=== PATIENT | female | born 1935 | race Caucasian/White ===

== ENCOUNTER 2016-06-29 22:18 | Inpatient (IN) | payer OTHER ==
--- NOTE | ~2016-06-29 | DS ---
Unit #: [id number] #: [id number] Patient: TERESA WATT [id number] [address] [address] [id number] I MR#: [id number] NAME: TERESA WATT. ROOM: [facility] Age: 81 Sex: F Admission Date: 06/30/2016 : 1935 Discharge Date: 07/09/2016 Attending Physician: Ankita Alberts M.D. Primary Care Physician: Rush Squires M.D. DISCHARGE SUMMARY SUMMARY DATE OF 07/09/2016 TIME OF 05:27 FINAL DIAGNOSES 1. Sepsis. 2. Bacteremia. 3. Hypotension. 4. Paroxysmal atrial fibrillation. 5. Nonsustained ventricular tachycardia. 6. Acute left lower extremity deep venous thrombosis. 7. Acute systolic congestive heart failure. 8. Acute on chronic diastolic congestive heart failure. 9. Ejection fraction of 40% to 45%. 10. Acute on chronic kidney disease. 11. Liver mass, status post biopsy this admission. 12. History of pancreatic cancer, status post Whipple procedure. 13. Hypothyroidism. 14. Sarcoidosis. 15. Nonsmoker. HISTORY 81-year-old female who was admitted to the hospital on 06/30/2016 with shortness of breath, worsening, and was diagnosed with acute on chronic systolic and diastolic congestive heart failure. Patient had bilateral lower extremity edema, diagnosed with DVT. Patient had a history of pancreatic cancer and had Whipple procedure done some time ago. Liver biopsy was done during hospitalization for the liver mass. The patient, after the liver biopsy, she went into hypertension and sepsis. The patient's family decided for DNR status and hospice care. Hospice was consulted but patient on 07/09/2016 at [facility]. The patient's family was aware of patient's poor prognosis and I discussed with them multiple times during hospitalization. Dictated by... Ankita Alberts M.D. Unit #: [id number] #: [id number] Patient: TERESA WATT ECTOR/jasmine TD: 07/17/2016 09:42 JOB #: [id number] DISCHARGE SUMMARY Page 1 of 1 X Ankita Alberts MD SUMMARY
--- NOTE | ~2016-06-29 | NM69 ---
[facility] A Service of [facility] RADIOLOGY TEXT RESULTS PATIENT: TERESA WATT LOCATION: [facility] [address]-84 : 36 UNIT #: [id number] AGE: [address]: Ankita Alberts MD SEX: F ORDER DR: [id number] [facility] [address] [facility] [address] [facility] [place], [place] [address] [id number] MR#: [id number] Acc #: [id number] NAME: TERESA WATT. : 1935 SEX: F STUDY DATE/TIME: 06/30/2016 1:45 UNIT: [facility]OGER ROOM: STUDY DESCRIPTION: NM Pulm Vent and Perf Attending Physician: Foreign Luna M.D. Ordering Physician: Vikas Garcia M.D. Primary Care Physician: Rush Squires M.D. MEDICAL IMAGING REPORT This report is preliminary unless electronic signature is present EXAM Radionuclide ventilation-perfusion lung scan 06/30/2016 HISTORY 81-year-old female in the ED complaining of 2-day history of shortness of air. She has a history of chronic lung disease (sarcoidosis). DOSE 33.8 mCi Technetium labeled DTPA inhaled in aerosol. 6 mCi Technetium labeled MAA administered intravenously. FINDINGS CHEST X-RAY FINDINGS: Chest x-ray 06/29/2016 shows diffusely increased interstitial markings with bulky thoracic calcified lymph nodes compatible with the patient's known history of pulmonary sarcoidosis. There is also significant central pulmonary artery enlargement compatible with pulmonary artery hypertension. A vascular filter is visible in the IVC. LUNG SCAN FINDINGS: Extensive, severe matched multifocal perfusion and ventilation defects are seen throughout both lungs. The pattern suggests this is likely secondary to the patient's diffuse chronic lung disease. No unmatched perfusion defect is identified to convincingly suggest acute pulmonary embolism. However, given the extent and severity of matched multifocal abnormality, pulmonary embolism would be very difficult to exclude with high confidence on this examination. The exam should be considered indeterminate for the exclusion of pulmonary embolism. IMPRESSION 1 Indeterminate examination for the exclusion of pulmonary embolism. 2. No unmatched perfusion defect is identified. 3. Evidence of severe diffuse chronic lung disease as noted above. 4. Chest x-ray shows a vascular filter in the IVC. [facility] A Service of [facility] RADIOLOGY TEXT RESULTS PATIENT: TERESA WATT LOCATION: [facility] [address]-18 : 36 UNIT #: [id number] AGE: [address]: Ankita Alberts MD SEX: F ORDER DR: STAT * RESULT Dictated by... Jerry Nielson M.D. THIS IS AN ELECTRONICALLY VERIFIED REPORT Jerry Nielson M.D. at 06/30/2016 5:29 AM KENDAL/isabella TD: 06/30/2016 02:40 JOB #: [id number] MEDICAL IMAGING REPORT COPY
--- NOTE | ~2016-06-29 | HP ---
Unit #: [id number] #: [id number] Patient: TERESA WATT [id number] [address] [place], [place] [address] [id number] I MR#: [id number] NAME: TERESA WATT. ROOM: 334 Age: 81 Sex: F Admission Date: 06/30/2016 : 1935 Attending Physician: Ankita Alberts M.D. Primary Care Physician: Rush Squires M.D. HISTORY AND PHYSICAL HISTORY OF PRESENT ILLNESS This is an 81-year-old white female with history of pulmonary embolism, status post IVC filter; coronary artery disease; hypertension; adenocarcinoma of the pancreas, status post Whipple; pulmonary sarcoid; COPD; recent-onset increased lower extremity edema about with increased shortness of air, no help with increasing dose of Lasix from 20 to 40 mg daily. Arrived in the emergency room where she was afebrile; paO2 was 75, pCO2 was 28; white count was slightly elevated; cardiac enzymes were normal; BNP was slightly elevated; VQ scan was indeterminate; coags were normal. EKG showed a sinus rhythm with first-degree AV block but was otherwise normal and the patient is admitted for further evaluation. Note, her liver functions were fairly high on admission. Do not have any old records of this except for when she was diagnosed with the adenocarcinoma some 5 years ago. Currently, she is awake, alert, oriented times 3 in no acute distress. She became somewhat hypotensive after getting IV Lasix. PAST MEDICAL HISTORY 1. Coronary artery disease. 2. Pulmonary embolism. 3. Sarcoid. 4. COPD. 5. Hypertension. 6. Hypothyroidism. 7. Adenocarcinoma of the pancreas, apparently the ampulla of Vater. 8. Suspect atrial fibrillation because of her amiodarone and Cardizem but patient unsure of that diagnosis and we have no records of it here. PAST SURGICAL HISTORY 1. Right hand repair. 2. Left hip. 3. Whipple procedure. HOME MEDICATIONS 1. Phenergan 25 mg p.o. p.r.n. 2. Spiriva one puff daily. 3. K-Dur 20 mEq daily. 4. Calcium 500 mg daily. 5. Multivitamins one daily. 6. Stool softener one daily. 7. Hydrocodone/APAP 5/325 one p.r.n. 8. Lasix 20 mg daily. Unit #: [id number] #: [id number] Patient: TERESA WATT 9. Cordarone 200 mg b.i.d. 10. Diltiazem 60 mg t.i.d. 11. Levothyroxine 75 mcg daily. ALLERGIES No known drug allergies. SOCIAL HISTORY She lives alone. Nonsmoker, nondrinker. No street drug use. She has a walker at home. PHYSICAL EXAMINATION VITAL SIGNS: Afebrile, pulse 65, respirations 18, blood pressure 85/52, room air O2 saturation in the ER was 97%. GENERAL: She is awake, alert, oriented x3. HEENT: Unremarkable except for nasal cannula in place and aging changes. NECK: Supple without JVD, bruits, adenopathy, or thyromegaly. LUNGS: Diffusely decreased breath sounds but clear to auscultation. HEART: Regular rate and rhythm without murmurs, rubs, or gallops. ABDOMEN: Soft, nondistended, nontender with positive bowel sounds and no hepatosplenomegaly. EXTREMITIES: No clubbing or cyanosis. She has 2+ pitting edema of the bilateral lower extremities which is fairly symmetrical. GENITOURINARY: Deferred. RECTAL: Deferred. NEUROLOGIC: Grossly intact. DIAGNOSTIC STUDIES LABORATORY: Room air ABGs pH 7.473, pCO2 28, paO2 75. CBC normal except for a white count of 12.4 with a left shift. Cardiac enzymes normal times 2 sets. CMP normal except for a sodium of 134. Creatinine 1.5. GFR of 35. AST 110, ALT 97, alkaline phosphatase 535. PT and PTT are within normal limits. BNP was 288. IMAGING: VQ scan indeterminate probability for pulmonary embolism. Severe chronic lung disease. IVC filter noted. Chest x-ray reportedly shows small bilateral pleural effusions but I am unable to pull it up in the computer. CARDIOVASCULAR: EKG shows a sinus rhythm with first-degree AV block but is otherwise normal. IMPRESSION 1. Possible newly-diagnosed congestive heart failure. 2. Bilateral lower extremity edema. 3. Bilateral pulmonary effusions. 4. Elevated liver functions. 5. Renal insufficiency of unknown duration, currently at stage 3. 6. Chronic obstructive pulmonary disease. 7. History of pancreatic cancer, status post Whipple procedure. 8. Pulmonary sarcoidosis. 9. History of pulmonary embolism, status post IVC filter. 10. Coronary artery disease. 11. Suspected history of atrial fibrillation. 12. Hypothyroidism on supplementation. 13. Leukocytosis of unclear etiology. Unit #: [id number] #: [id number] Patient: TERESA WATT PLAN 1. 2D echo with Doppler. 2. Decrease amiodarone to 200 mg daily. 3. Decrease Cardizem with parameters. 4. Hold Lasix for systolic below 90. 5. Bilateral lower extremity venous Dopplers. 6. Check an ultrasound of her liver and inferior vena cava. 7. Thyroid levels. 8. Cardiology has been consulted. 9. If it appears that her sarcoid is active, will consult pulmonary services. 10. Currently, she is on Lovenox for DVT prophylaxis as well. 11. Daily BMP is ordered. 12. Fluid restriction with 2-gram sodium restriction as well. Dictated by Rohan Shipley/new TD: 06/30/2016 12:15 JOB #: [id number] HISTORY AND PHYSICAL X Saman Sanders MD X HISTORY AND PHYSICAL
--- NOTE | ~2016-06-29 | XA166 ---
[facility] A Service of [facility] & [facility] RADIOLOGY TEXT RESULTS PATIENT: TERESA WATT LOCATION: [address] : 36 UNIT #: [id number] AGE: [address]: Ankita Alberts MD SEX: F ORDER DR: [id number] [facility] [address] [place], [place] [address] [id number] I MR#: [id number] Acc #: [id number] NAME: TERESA WATT. : 1935 SEX: F STUDY DATE/TIME: 07/05/2016 13:24 UNIT: [facility] ROOM: [facility] STUDY DESCRIPTION: XA PICC Line Placement WO Port Attending Physician: Ankita Alberts M.D. Ordering Physician: Ankita Alberts M.D. Primary Care Physician: Rush Squires M.D. MEDICAL IMAGING REPORT This report is preliminary unless electronic signature is present EXAM PICC line placement HISTORY PICC line placement PRE-PROCEDURE The procedure was explained to the patient and/or patient farm loan representative including risks, benefits, potential complications and potential for alternative forms of treatment. Informed consent was obtained, and prior to initiating the procedure a formal timeout procedure was performed. PROCEDURE Using full standard sterile barrier technique, including caps, gowns, gloves, masks, as well as sterile skin preparation and standard sterile draping, the right arm was prepped and draped in the usual fashion, and real-time sterile ultrasound guidance was used to localize an arm vein and to confirm vessel patency. A hard copy ultrasound image was recorded. After local anesthesia with 1% Xylocaine, the vein was punctured using real-time sterile ultrasound guidance, and an 0.018 guidewire was advanced into the superior vena cava, using fluoroscopic guidance. A 5-German dual-lumen PICC was then measured and deployed with the tip positioned in the superior vena cava. The position of the line was documented with a radiographic image. The line was secured in place with an adhesive dressing and an antibiotic patch was applied. Total fluoro time was 0.2 minutes. Single fluoroscopic image was obtained. IMPRESSION Successful placement of a 5-German dual-lumen PowerPICC via the right arm under ultrasound and fluoroscopic guidance. The tip of the PICC is in good position in the superior vena cava. [facility] A Service of [facility] RADIOLOGY TEXT RESULTS PATIENT: TERESA WATT LOCATION: [address] : 36 UNIT #: [id number] AGE: [address]: Ankita Alberts MD SEX: F ORDER DR: Dictated by... Gris To M.D. THIS IS AN ELECTRONICALLY VERIFIED REPORT Gris To M.D. at 07/08/2016 4:46 PM AFF/rngraciela TD: 07/05/2016 22:46 JOB #: [id number] MEDICAL IMAGING REPORT Page 1 of 1 COPY
--- NOTE | ~2016-06-29 | CT134 ---
[facility] A Service of [facility] RADIOLOGY TEXT RESULTS PATIENT: TERESA WATT LOCATION: [address]11 : 36 UNIT #: [id number] AGE: [address]: Ankita Alberts MD SEX: F ORDER DR: [id number] [facility] [address] [facility]. [place], [place] [address] [id number] I MR#: [id number] Acc #: [id number] NAME: TERESA WATT. : 1935 SEX: F STUDY DATE/TIME: 07/03/2016 13:23 UNIT: [facility] ROOM: [facility] STUDY DESCRIPTION: CT Guide Attending Physician: Ankita Alberts M.D. Ordering Physician: Guido Pulido M.D. Primary Care Physician: Rush Squires M.D. MEDICAL IMAGING REPORT This report is preliminary unless electronic signature is present EXAM CT-guided liver biopsy. This CT exam was performed with one or more of the following radiation dose reduction techniques: automatic exposure control, adjustment of mA and/or kV according to patient size, and iterative reconstruction. INDICATION Ms. Watt is a 81-year-old lady who has a history of pancreatic cancer status post Whipple procedure. She was noted to have an infiltrating mass involving the hilum of the liver with multiple new low attenuation lesions favored to represent metastases. She has been referred for a biopsy. PROCEDURE The risks, benefits, and alternatives to the procedure were explained to the patient, and signed, informed consent was obtained. She was placed supine on the CT scanner gantry. Preliminary CT scan was performed in the region of interest. An appropriate site overlying the right hepatic lobe was selected. The overlying skin was marked. The skin and subcutaneous tissues were anesthetized with buffered lidocaine and a 17-gauge coaxial needle was advanced into the periphery of the hilar mass. A 2 cm core sample was obtained. The patient was noted to have drainage of bile through the coaxial needle. It was removed and manual pressure was applied until hemostasis was obtained. The patient tolerated the procedure well and there were no immediate complications. She received conscious sedation consisting of 2 mg of Versed and 75 mcg of fentanyl. A total of 50 minutes of continuous monitoring was provided by the IVR staff. IMPRESSION Technically successful CT-guided liver biopsy as noted above. CT was used during the procedure and permanent images were saved. [facility] A Service of [facility] RADIOLOGY TEXT RESULTS PATIENT: TERESA WATT LOCATION: [place] [address]-11 : 36 UNIT #: [id number] AGE: [address]: Ankita Alberts MD SEX: F ORDER DR: Dictated by... Gris To M.D. THIS IS AN ELECTRONICALLY VERIFIED REPORT Gris To M.D. at 07/04/2016 4:38 PM AFF/chuy TD: 07/04/2016 09:30 JOB #: [id number] MEDICAL IMAGING REPORT Page 1 of 1 COPY
--- NOTE | ~2016-06-29 | CR72 ---
[facility] A Service of [facility] RADIOLOGY TEXT RESULTS PATIENT: TERESA WATT LOCATION: [place] [address]-11 : 36 UNIT #: [id number] AGE: [address]: Ankita Alberts MD SEX: F ORDER DR: [id number] [facility] [address] [place], [place] [address] [id number] I MR#: [id number] Acc #: [id number] NAME: TERESA WATT. : 1935 SEX: F STUDY DATE/TIME: 07/05/2016 9:02 UNIT: [facility] ROOM: [facility] STUDY DESCRIPTION: CR Chest Single View Portable Attending Physician: Ankita Alberts M.D. Ordering Physician: Taisha Banks M.D. Primary Care Physician: Rush Squires M.D. MEDICAL IMAGING REPORT This report is preliminary unless electronic signature is present EXAM Portable chest 07/05/2016 COMPARISON 06/29/2016. HISTORY Shortness of breath and lower extremity edema for 7 days. FINDINGS An AP view is obtained. Cardiac size is stable. Patient has an increase in left-sided pleural fluid and an increase in atelectasis or infiltrate in the left base. Right lung is unchanged. There are extensive calcifications throughout the mediastinum. CONCLUSION Increasing left-sided pleural fluid and volume loss or infiltrate in the left perihilar area and base. Dictated by... Navid Brown M.D. THIS IS AN ELECTRONICALLY VERIFIED REPORT Navid Brown M.D. at 07/08/2016 2:43 PM RAYSA/ginny TD: 07/05/2016 11:03 JOB #: [id number] MEDICAL IMAGING REPORT Page 1 of 1 COPY
--- NOTE | ~2016-06-29 | CR72 ---
[facility] A Service of [facility] RADIOLOGY TEXT RESULTS PATIENT: TERESA WATT LOCATION: [facility] 334-01 : 36 UNIT #: [id number] AGE: [address]: Ankita Alberts MD SEX: F ORDER DR: [id number] [facility] [address] [facility]. [place], [place] [address] [id number] I MR#: [id number] Acc #: [id number] NAME: TERESA WATT. : 1935 SEX: F STUDY DATE/TIME: 06/29/2016 22:13 UNIT: [address] ROOM: [facility] STUDY DESCRIPTION: CR Chest Single View Portable Attending Physician: Ankita Alberts M.D. Ordering Physician: Ed Doctor [id number] [facility] Primary Care Physician: Rush Squires M.D. MEDICAL IMAGING REPORT This report is preliminary unless electronic signature is present EXAM Portable chest HISTORY Shortness of air and lower extremity edema for 2 days. FINDINGS Cardiac size and pulmonary vascularity are within normal limits. Extensive calcified mediastinal lymph nodes and additional calcified hilar nodes and small calcified granulomas in the right apex. Tiny bilateral pleural effusions. IMPRESSION 1. No acute findings and no active disease. Extensive calcified mediastinal and hilar nodes. 2. Very small bilateral pleural effusions. Dictated by... Milton Franklin M.D. THIS IS AN ELECTRONICALLY VERIFIED REPORT Milton Franklin M.D. at 07/01/2016 12:30 PM BERTRAND/day TD: 07/01/2016 07:28 JOB #: [id number] MEDICAL IMAGING REPORT COPY
--- NOTE | ~2016-06-29 | CT4 ---
[facility] A Service of [facility] RADIOLOGY TEXT RESULTS PATIENT: TERESA WATT LOCATION: [facility] 334-01 : 36 UNIT #: [id number] AGE: [address]: Ankita Alberts MD SEX: F ORDER DR: [id number] [facility] [address] [facility]. [place], [place] [address] [id number] I MR#: [id number] Acc #: [id number] NAME: TERESA WATT : 1935 SEX: F STUDY DATE/TIME: 07/01/2016 20:01 UNIT: [facility] ROOM: [facility] STUDY DESCRIPTION: CT Abd and Pelv Wo Cont Attending Physician: Ankita Alberts M.D. Ordering Physician: Chadwick Givens M.D. Primary Care Physician: Rush Squires M.D. MEDICAL IMAGING REPORT This report is preliminary unless electronic signature is present EXAM CT abdomen and pelvis without contrast, 07/01/2016 at 2001 hours. CLINICAL HISTORY 81-year-old with history of pancreatic cancer and elevated liver enzymes. Patient complains of upper abdominal pain since 06/30/2016, evaluate for possible liver metastasis. COMPARISON 05/02/2011, ultrasound liver 07/01/2016 TECHNIQUE Helical noncontrasted images were obtained from the lung bases through the pubic symphysis without oral or intravenous contrast per request. Sagittal and coronal reconstructions were performed. Total exam DLP 938 mGy-cm. This CT exam was performed with one or more of the following radiation dose reduction techniques: automatic exposure control, adjustment of mA and/or kV according to patient size, and iterative reconstruction. FINDINGS Images through the lung bases demonstrate a small dependent left pleural effusion with linear density at the left base likely atelectasis. There is linear scar or atelectasis at the lateral right lung base. There is a calcified granuloma at the right base and an additional noncalcified indeterminate 4 mm nodule on image 7. Images through the abdomen demonstrate hyperdensity of the liver relative to the spleen which can be seen in hemochromatosis or amiodarone therapy. The patient has surgical change at the region of the paradise hepatis. There [facility] A Service of [facility] & [facility] RADIOLOGY TEXT RESULTS PATIENT: TERESA WATT [id number] 37 UNIT #: [id number] AGE: [address]: Ankita Alberts MD SEX: F ORDER DR: is persistent pneumobilia as was seen on 05/02/2011 with multiple liver lesions seen within the liver. Example measurement anteriorly superiorly in the right lobe 2.4 cm, posteriorly and inferiorly in the right lobe 2.8 cm with multiple other lesions seen. At the paradise hepatis there is an ovoid low density mass relative to the liver measuring 5.3 cm x 3.5 cm which could represent a pathologic node versus a portion of the caudate lobe. There is an infiltrative type low density mass extending into both the right and left lobes of the liver covering an area measuring up to 7.4 cm x 4.5 cm. Given history of prior ampullary tumor with Whipple procedure this most likely represents local recurrence. There is abnormal soft tissue extending to the celiac axis and the superior mesenteric artery encasing these vessels and measuring up to 1.5 cm anterior to the abdominal aorta at this level. There is abnormal soft tissue between the aorta and IVC, likely tumor. There is atrophy of the body and tail of the pancreas. Some collateral vessels are seen but there is no definite ascites. There are right renal cysts unchanged. Dilatation of the left renal pelvis has decreased. The stomach is normal in appearance. The small bowel and colon are unremarkable. IMPRESSION 1. The CT scan is markedly abnormal and changed from the most recently available CT of 05/02/2011. It appears the patient has had prior Whipple procedure. There is abnormal soft tissue in the paradise hepatis measuring up to 5.3 cm x 3.5 cm with infiltrative low-density tumor extending into both the right left lobe of the liver measuring up to 7.4 cm x 4.5 cm. There is abnormal soft tissue around the IVC, aorta at the origin of the celiac axis, superior mesenteric artery and encasing the right renal artery most consistent with infiltrative tumor. There are multiple new liver lesions within the liver measuring up to 2.8 cm in the posterior right lobe inferiorly with approximately 10 to 15 lesions separate from the infiltrative tumor. The liver is dense relative to the spleen suggesting hemochromatosis or prior amiodarone therapy. 2. There is a stable right renal cyst. 3. Dilatation of the left renal pelvis has decreased. 4. There is diverticulosis of the sigmoid colon but no bowel wall thickening or distension is seen in the small bowel or colon. STAT * RESULT Dictated by... Taylor Luther M.D. [facility] A Service of [facility] RADIOLOGY TEXT RESULTS PATIENT: TERESA WATT LOCATION: [facility] 334-01 : 36 UNIT #: [id number] AGE: [address]: Ankita Alberts MD SEX: F ORDER DR: THIS IS AN ELECTRONICALLY VERIFIED REPORT Taylor Luther M.D. at 07/01/2016 9:00 PM JOI/rose TD: 07/01/2016 20:46 JOB #: [id number] MEDICAL IMAGING REPORT COPY
--- NOTE | ~2016-06-29 | EKG ---
PATIENT: TERESA WATT UNIT #: [id number] Ventricular Rate: 95 BPM Atrial Rate: 97 BPM QRS Duration: 102 ms Q-T Interval: 334 ms QTC Calculation(Bezet): 419 ms Calculated R [place]: 95 degrees Calculated T [place]: 71 degrees Diagnosis Line: Accelerated Junctional rhythm Diagnosis Line: Rightward axis Diagnosis Line: Nonspecific ST and T wave abnormality Diagnosis Line: Abnormal ECG Diagnosis Line: When compared with ECG of 01-JUL-2016 09:23, Diagnosis Line: Junctional rhythm has replaced Sinus rhythm Diagnosis Line: Vent. rate has increased BY 32 BPM Diagnosis Line: QT has shortened Diagnosis Line: Confirmed by PETER LEWIS MD ([id number]) on 07/05/2016 Diagnosis Line: 7:44:47 AM INTERPRETING MD: JOSHUA JAIN
--- NOTE | ~2016-06-29 | CO ---
Unit #: [id number] #: [id number] Patient: TERESA WATT [id number] [address] [place], [place] [address] [id number] I MR#: [id number] NAME: TERESA WATT. ROOM: [facility] Age: 81 Sex: F Admission Date: 06/30/2016 : 1935 Attending Physician: Ankita Alberts M.D. Primary Care Physician: Rush Squires M.D. Consultation Date: 07/04/2016 CONSULTATION REPORT NEPHROLOGY CONSULTATION REASON FOR CONSULT Acute on chronic kidney disease. HISTORY OF PRESENT ILLNESS Ms. Watt is a pleasant 81-year-old female whom we were asked to see today because of acute kidney injury and a low urine output in the setting of hypotension. The patient had developed significant low blood pressure into the 60s last night requiring transfer to the ICU and fluid boluses and dopamine support. She had a liver biopsy yesterday for suspected mets from previous pancreatic cancer for which she had a Whipple several years ago. The patient is currently in the ICU lying on her side in no distress. She is getting a fluid bolus now as well as dopamine. She denies any chest discomfort or shortness of breath to me. Her urine is draining via Whitfield with no hematuria. There have been no issues with vomiting or diarrhea. She does have chronic swelling and has a history of a DVT. Her pain appears to be well controlled. PAST MEDICAL HISTORY Significant for: 1. Coronary artery disease with CHF with an EF of about 40%. 2. History of DVT/PE with an IVC filter. 3. Sarcoid. 4. COPD. 5. Hypertension. 6. A-fib. 7. Hypothyroidism. 8. Pancreatic cancer. PAST SURGICAL HISTORY 1. She has had hand surgery. 2. Hip surgery. 3. Whipple. MEDICATIONS Current medications are: 1. Dopamine drip at 8 mcg/kg/minute. 2. Rocephin 1 g IV daily. 3. Synthroid 75 mcg a day. 4. Senokot-S daily. 5. Multivitamin daily and p.r.n. ALLERGIES Unit #: [id number] #: [id number] Patient: TERESA WATT She has no known drug allergies. FAMILY HISTORY Negative for any family history of kidney problems. No one on dialysis according to her. SOCIAL HISTORY The patient quit smoking about 40 years ago. She lives alone and was independent before coming in. No history of alcohol or drug use. She has a very supportive family here today. REVIEW OF SYSTEMS A complete 12 point review of systems was completed with the above findings. In addition, she denies any fevers or chills. There has been no reports of nosebleed, sore throat or earache. No chest pain, no palpitations, no cough or hemoptysis, no bright red blood per rectum or melena. No rashes or itching. No flank pain, no night sweats or hot flashes, no intolerance to heat or cold. No other bleeding issues. Liver biopsy site is dry. She is unsure about any weight loss. Unless otherwise indicated, the review of systems was negative. PHYSICAL EXAMINATION VITAL SIGNS: The patient is afebrile. Pulse 83, respiratory rate 24, blood pressure 121/62 now. Lowest blood pressure recorded was 67/34 just after midnight. I's and O's are positive by 295 mL. GENERAL: This is a pleasant 81-year-old white female lying on her side who is alert and in no acute distress. HEENT EXAM: Head is atraumatic, normocephalic. Eyes show pink conjunctivae. No nasal drainage, no nosebleed. Oropharynx is dry. NECK: Without rigidity. HEART: Regular rate. No murmur or rub appreciated. LUNGS: Clear with no wheezing or rhonchi. Breathing is nonlabored. ABDOMEN: Soft with mild tenderness at biopsy site. There are bowel sounds present without rebound or guarding. EXTREMITIES: The patient does have 1+ pitting edema below the knees bilaterally. SKIN: Without rashes. GENITOURINARY EXAM: Whitfield catheter is in place with nonbloody urine. MUSCULOSKELETAL EXAM: No CVA tenderness to palpation. NEUROLOGICAL EXAM: The patient is moving all four extremities. PSYCHIATRIC EXAM: Mood and affect appear normal. DIAGNOSTIC STUDIES LABORATORY: CBC showed a white count of 33, hemoglobin 12, platelet count 235. No peripheral eosinophilia. Chemistry today noteworthy for a sodium of 134, potassium 4.7, chloride 100, bicarb of 23, glucose 83, BUN 28, creatinine 1.7. AST and ALT are high at 791 and 274 respectively. Total bili was high at 5.5. UA yesterday did show a few white blood cells and some bacteria. CEA antigen was 387 which is elevated. Creatinine yesterday was 1.2 which looks to be her baseline. IMAGING: CT scan done this admission without contrast did show some right renal cyst and liver lesions. Looks like baseline creatinine is in the low 1's. Unit #: [id number] #: [id number] Patient: TERESA WATT ASSESSMENT AND PLAN 1. Acute on chronic kidney disease stage 3: It does look like patient has underlying baseline chronic kidney disease related to history of hypertension and atherosclerotic disease. Her acute kidney injury looks to be prerenal in nature from significant hypotension. Urine output is noted to be low and she is getting blood pressure support with improved blood pressures. I will be sending off urine studies for a sodium and creatinine level as she may be having an hepatorenal type picture with her liver issues. We will recheck labs in the morning and make further recommendations as needed. 2. Hyponatremia: We will use normal saline as a replacement fluid. 3. Hypotension: This is better with saline and dopamine. 4. History of congestive heart failure with no signs of volume excess in the lung on exam. 5. History of pancreatic cancer, now with liver mets. 6. History of atrial fibrillation. 7. History of DVT/PE. 8. Chronic obstructive pulmonary disease. I would like to thank Dr. Alberts for this consult and the opportunity to participate in the evaluation and care of Ms. Watt. Dictated by... Benja Hong Jr., M.D. SOLANGE/jasmine TD: 07/05/2016 06:51 JOB #: [id number] CONSULTATION REPORT Page 1 of 1 X Benja Hong MD X CONSULTATION REPORT
--- NOTE | ~2016-06-29 | US88 ---
[facility] A Service of [facility] RADIOLOGY TEXT RESULTS PATIENT: TERESA WATT LOCATION: [facility] : 36 UNIT #: [id number] AGE: [address]: Ankita Alberts MD SEX: F ORDER DR: [id number] [facility] [address] [place], [place] [address] [id number] I MR#: [id number] Acc #: [id number] NAME: TERESA WATT. : 1935 SEX: F STUDY DATE/TIME: 07/01/2016 8:56 UNIT: [address] ROOM: [facility] STUDY DESCRIPTION: US Liver or Hepatic Attending Physician: Ankita Alberts M.D. Ordering Physician: Saman Sanders M.D. Primary Care Physician: Rush Squires M.D. MEDICAL IMAGING REPORT This report is preliminary unless electronic signature is present EXAM Right upper quadrant abdominal ultrasound INDICATION Elevated liver enzyme levels PROCEDURE Real-scale and Doppler imaging of the right upper quadrant of the abdomen. COMPARISON 05/02/2011 CT. FINDINGS The pancreas is not well seen on this study. The liver is diffusely heterogeneous. Some areas in the liver, particularly what appears to be the central right hepatic lobe, have a nodular appearance. 2.7 cm benign cyst in the right kidney. The right kidney measures 9.6 cm. Cortical thickness is 7.0 mm and right kidney shows slightly increased echotexture. There is mild intrahepatic bile duct dilation. IMPRESSION 1. Difficult evaluation of the liver but it does appear heterogeneous, with some somewhat mass-like nodular areas in the central liver. Cannot exclude liver mass on this ultrasound and the liver should be evaluated with either CT or MRI. 2. Mild intrahepatic bile duct dilation. 3. Previous cholecystectomy. 4. Right renal cyst. Dictated by... Bala Wilhlem M.D. [facility] A Service of [facility] RADIOLOGY TEXT RESULTS PATIENT: TERESA WATT LOCATION: [facility] : 36 UNIT #: [id number] AGE: [address]: Ankita Alberts MD SEX: F ORDER DR: THIS IS AN ELECTRONICALLY VERIFIED REPORT Bala Wilhelm M.D. at 07/02/2016 10:02 AM Sonia TD: 07/01/2016 14:16 JOB #: [id number] MEDICAL IMAGING REPORT Page 1 of 1 COPY
--- NOTE | ~2016-06-29 | A ---
[facility] Nutrition Therapy DATE: 07/05/16 Patient: TERESA WATT Physician: VICKY Address: [address] Room/Bed: [address], Zip: [place] [address] Admit Date: 06/30/16 Date of : 37 Height: 5 5 Weight: 137 62.5 NUTRITIONAL ASSESSMENT: REASON: LOS IN ICU ASSESSMENT PT IS 81 Y.O. FEMALE ADMITTED FOR CHF, EDEMA, YAEL PMH: CAD, CHF, COPD, HTN, DC, AFIB, HYPOTHYROIDISM, PANCREATIC CANCER, WHIPPLE, CKD STAGE 3 Anthropometrics: 5'5", WT: 140# (BEDSIDE) (64 KG), BMI: 23.3 Labs: BUN: 35, CREAT: 2.4, CA+:8.0, ALB: 2.6, AST: 791, ALT: 274, GFR: 18.5, K+:5.4, NA+:132 Meds: NACL, SENOKOT, LEVOTHROID, PHENERGAN, OS-PRAVEENA 500+D I/O & Bowel function: 2584/130 Skin Integrity: STAGE 2 PRESSURE ULCER (R) BUTTOCK; SURGICAL SITE (R) ABD EDEMA: BLE 2+ EDEMA; LLE 1+ EDEMA; RLE TRACE EDEMA Estimated Nutrition Needs: INCREASED NUTRIENT NEEDS 2' CURRENT CONDITION, DECREASED PO INTAKE AND APPETITE Assessment: CHART REVIEWED AND EVENTS NOTED. PT SEEN FOR LOS IN ICU (5 DAYS). PT SLEEPY/LETHARGIC AT TIME OF VISIT REPORTING DECREASED PO INTAKE 2' DECREASED APPETITE, NOTING NO C/O N/V/D. FAMILY REPORT PT'S APPETITE IS "POOR" BUT NOTES LOVES "COUNTRY FOOD". FAMILY REPORT THERE HAS BEEN WEIGHT LOSS BUT UNABLE TO IDENTIFY AMOUNT AND TIME FRAME. PER [employer], PT WEIGHED ~190# BACK IN 2011. PER RN AND CHART, NEW METASTATIC LIVER DISEASE NOTED AT THIS ADMIT. THIS RD ENCOURAGED ADEQUATE KCAL AND PROTEIN INTAKE, PT AGREED TO ENSURE PUDDING AND MAGIC CUPS DAILY. PT AND FAMILY REPORTED NO DIET QUESTIONS AT THIS TIME. RD TO FOLLOW. SEE RECOMMENDATIONS BELOW. Dx: INADEQUATE PROTEIN-ENERGY INTAKE R/T CURRENT CLINICAL CONDITION, ADVANCED AGE AEB PT AND FAMILY REPORT ABOVE. Intervention: 1. REGULAR DIET 2. ENSURE PUDDING BID 3. MAGIC CUP BID Monitoring, Evaluation and Goals: 1. PO INTAKE; PROVIDE AND CONSUME ADEQUATE NUTRITION W/NO C/O N/V/D (PO>50%) 2. WEIGHTS; PREVENT FURTHER WEIGHT LOSS; PROMOTE WEIGHT MAINTENANCE 3. LABS; WNL [facility] Nutrition Therapy DATE: 07/05/16 Patient: TERESA WATT Physician: VICKY Address: [address] [place] [address] Room/Bed: [address], Zip: [place] [address] Admit Date: 06/30/16 Date of : [birth year] Height: 5 5 Weight: 137 62.5 4. GI; PROMOTE REGULAR GI FUNCTION 5. SKIN; PROMOTE SKIN HEALING MONITOR: -PO INTAKE/APPETITE -WEIGHTS -SUPPLEMENT INTAKE Recommendations: 1. ORDER VANILLA ENSURE PUDDING BID W/MEALS 2. ORDER VANILLA MAGIC CUP BID W/MEALS 3. APPRECIATE FAMILY AND STAFF TO ENCOURAGE ADEQUATE KCAL AND PROTEIN INTAKE. ASSIST W/ORDERING MEALS 4. CONSIDER ADDING APPETITE STIMULANT, SUCH MEGACE, TO BETTER STIMULATE PO INTAKE RD WILL F/U PER PROTOCOL PT IS MODERATELY COMPROMISED Respectfully, RODRIGO STOLL MS, RD, LD [employer] and [employer] cc: client file
--- NOTE | ~2016-06-29 | EKG ---
PATIENT: TERESA WATT UNIT #: [id number] Ventricular Rate: 63 BPM Atrial Rate: 63 BPM P-R Interval: 242 ms QRS Duration: 90 ms Q-T Interval: 466 ms QTC Calculation(Bezet): 476 ms P [place]: 27 degrees Calculated R [place]: 87 degrees Calculated T [place]: 78 degrees Diagnosis Line: Sinus rhythm with 1st degree A-V block Diagnosis Line: Cannot rule out Anterior infarct , age Diagnosis Line: undetermined Diagnosis Line: Abnormal ECG Diagnosis Line: When compared with ECG of 29-JUN-2016 22:45, Diagnosis Line: No significant change was found Diagnosis Line: Confirmed by PETER LEWIS MD ([id number]) on 07/02/2016 Diagnosis Line: 4:45:16 AM INTERPRETING MD: JOSHUA JAIN
--- NOTE | ~2016-06-29 | US74 ---
[facility] A Service of [facility] RADIOLOGY TEXT RESULTS PATIENT: TERESA WATT LOCATION: [facility] 334- : 36 UNIT #: [id number] AGE: [address]: Ankita Alberts MD SEX: F ORDER DR: [id number] [facility] [address] [facility]. [place], [place] [address] [id number] I MR#: [id number] #: [id number] NAME: TERESA WATT. : 1935 SEX: F STUDY DATE/TIME: 07/01/2016 9:08 UNIT: [address] ROOM: [facility] STUDY DESCRIPTION: US IVC/Iliac/[employer] Attending Physician: Ankita Alberts M.D. Ordering Physician: Saman Sanders M.D. Primary Care Physician: Rush Squires M.D. MEDICAL IMAGING REPORT This report is preliminary unless electronic signature is present EXAM Inferior vena cava ultrasound HISTORY This patient has a history of an IVC filter placed in 2011. Exam is requested to evaluate for the presence of clot within the inferior vena cava. TECHNIQUE Real-scale, color Doppler and spectral Doppler waveform analysis was performed through the abdomen. FINDINGS The patient's cranial inferior vena cava appears to be patent with a normal appearing waveform. I think I can also see color Doppler flow within the mid inferior vena cava. The patient's caudal inferior vena cava is not well assessed on these images. IMPRESSION No evidence of thrombus within the visualized portions of the inferior vena cava. Please note this is an extremely technically limited examination and is particularly nondiagnostic for the infrarenal inferior vena cava. I would suggest further assessment with contrast enhanced study if clinical concern persists. Dictated by... Gris To M.D. THIS IS AN ELECTRONICALLY VERIFIED REPORT Gris To M.D. at 07/02/2016 5:58 PM [facility] A Service of [facility] RADIOLOGY TEXT RESULTS PATIENT: TERESA WATT LOCATION: [facility] 334-01 : 36 UNIT #: [id number] AGE: [address]: Ankita Alberts MD SEX: F ORDER DR: CLARI/cesia TD: 07/02/2016 06:19 JOB #: [id number] MEDICAL IMAGING REPORT Page 1 of 1 COPY
--- NOTE | ~2016-06-29 | CO ---
Unit #: [id number] #: [id number] Patient: TERESA WATT [id number] [facility] [address]. [place], [place] [address] [id number] I MR#: [id number] NAME: TERESA WATT. ROOM: [facility] Age: 81 Sex: F Admission Date: 06/30/2016 : 1935 Attending Physician: Ankita Alberts M.D. Primary Care Physician: Rush Squires M.D. Consultation Date: 06/30/2016 CONSULTATION REPORT HISTORY OF PRESENT ILLNESS This is an 81-year-old white female, previously known to Dr. Smith. The patient was seen at [facility] in 2010 and underwent 2D echocardiogram on 09/03/2010 which revealed a left ventricular ejection fraction of 50% to 55% with booo-oq-hcrqsiji mitral regurgitation and qrtt-sy-afmsedoe pulmonary hypertension. 24-hour Holter monitor revealed sinus rhythm with some PVCs and one run of supraventricular tachycardia. Lexiscan Cardiolite stress test was completed on 09/05/2010 and revealed a medium-sized area of ischemia in the apex and anterolateral wall. Ejection fraction 56%. The patient was recommended for cardiac catheterization versus CT of the coronaries, but the patient did not follow up. She does have a history of possible atrial fibrillation and is on amiodarone and Cardizem. However, she denies any arrhythmias during interview. She has a history of sarcoidosis. She was diagnosed with an ampullary adenocarcinoma that was diagnosed in 04/2011. She underwent Whipple procedure at [facility]. She has a history of a DVT and/or PE and reportedly has an IVC filter. She was diagnosed with a "blood clot" 3 to 4 years ago. She now reports hypertension, hyperlipidemia, diabetes, myocardial infarction or cerebrovascular accident. The patient states that her heart is fine and that is why she did not follow up after 2010. She presented to the emergency department with complaints of shortness of breath and swelling in the legs over the last 3 days. She denies dizziness, palpitations, or syncope. There are no reports of chest pain. She did fall recently and bruised in her left hip. She also has a small abrasion on the right arm. The shortness of breath has been worse with exertion. There is some presence at night. However, she has only been sleeping with one pillow. She has had some diarrhea intermittently over the last 1 to 2 weeks. She is on Lasix at home, but that has not really helped the swelling or her shortness of breath. In the emergency department, she was given Lasix 40 mg x1. V/Q scan was indeterminate. Bilateral lower extremity Doppler was ordered to rule out DVT. A 2D echocardiogram was ordered to assess LV function and valves. She was admitted for possible congestive heart failure and Cardiology was consulted. PAST MEDICAL HISTORY 1. 2D echocardiogram on 09/05/2010 revealed a left ventricular ejection fraction of 50% to 55% with hobu-bv-ucsshxiw mitral regurgitation. Mild tricuspid regurgitation. Right ventricular systolic pressure of 40 mmHg. Borderline aortic root dilatation. 2. 24-hour Holter monitor in 08/2010 revealed sinus rhythm with PVCs. Unit #: [id number] #: [id number] Patient: TERESA WATT Long run of SVT. 3. Lexiscan Cardiolite stress test on 09/05/2010 revealed medium-sized ischemia in the apex/anterolateral wall. Ejection fraction 56%. Did not follow up for suggested cardiac catheterization. 4. Possible atrial fibrillation with details unknown. Currently, on Cardizem and amiodarone. No chronic anticoagulation ordered. 5. Sarcoidosis. 6. Hypothyroidism. 7. Ampullary adenocarcinoma diagnosed in 04/2011, status post Whipple procedure. 8. History of DVT and questionable PE with reported IVC filter 3 to 4 years ago, details unavailable. 9. Nonsmoker. PAST SURGICAL HISTORY 1. Right hand surgery. 2. Whipple. 3. Left hip surgery. HOME MEDICATIONS Phenergan 25 mg p.o. p.r.n. for nausea, Spiriva 1 puff inhalation daily, potassium chloride 20 mEq p.o. daily, calcium carbonate one tablet p.o. daily, multivitamin one tablet p.o. daily, stool softener one tablet p.o. daily, hydrocodone/acetaminophen one tablet p.o. p.r.n. for pain, Lasix 20 mg p.o. daily, amiodarone 200 mg b.i.d., diltiazem ER 60 mg p.o. t.i.d., and levothyroxine 75 mcg p.o. daily. ALLERGIES No known drug allergies. SOCIAL HISTORY The patient lives in a private residence. She is a nonsmoker. There are no reports of alcohol or illicit drug use. The patient ambulates with a walker and uses a wheelchair intermittently. FAMILY HISTORY Contributory for heart disease. REVIEW OF SYSTEMS Ten-point review of systems negative except for details noted above in HPI. PHYSICAL EXAMINATION VITAL SIGNS: Temperature 97.3, pulse 55, blood pressure 85/52 with previous blood pressure 116/67. CONSTITUTIONAL: This is an 81-year-old white female, in no acute distress. SKIN: Warm and dry. NECK: Supple. Positive jugular vein distention. No hepatojugular reflux. Normal carotid upstrokes. No carotid bruits auscultated. HEART: S1 and S2. Regular rate and rhythm. No murmurs, rubs, or gallops. LUNGS: Bilateral breath sounds are diminished in the bases. Respirations are even and nonlabored. No rales, rhonchi, or wheezes. ABDOMEN: Soft, nontender, and nondistended. Positive bowel sounds auscultated x4 quadrants. No ascites noted. EXTREMITIES: Bilateral lower extremities have +3 pitting edema. DP and PT pulses are 2+. Capillary refill less than 3 seconds. Unit #: [id number] #: [id number] Patient: TERESA WATT DIAGNOSTIC STUDIES LABORATORY RESULTS: White blood cell count 12.4, hemoglobin 13.4, hematocrit 41.4, and platelets 222. Sodium 135, potassium 4.0, chloride 104, CO2 of 23, BUN 19, creatinine 1.4, glucose 85, magnesium 2.2. Total bilirubin 1.4, direct bilirubin 0.6, indirect bilirubin 0.8, AST 110, ALT 97, alkaline phos 535. BNP 288. INR 1.1. Troponin 0.05 and 0.05. Calcium 7.6. IMAGING STUDIES: V/Q scan indeterminate study. Severe diffuse lung disease, chronic. IVC filter present. Chest x-ray reveals extensive mediastinal and hilar nodes. Small bilateral effusions. CARDIOVASCULAR STUDIES: EKG reveals sinus rhythm with a first-degree AV block. No acute changes. IMPRESSION 1. Acute congestive heart failure. 2D echo pending. 2. Indeterminate probability of pulmonary embolism on V/Q scan. 3. Significant lower extremity edema, rule out deep vein thrombosis. 4. Sarcoidosis. 5. Borderline hypotension. 6. Elevated LFTs with history of Whipple. 7. Questionable mediastinal adenopathy versus changes from sarcoidosis. 8. Abnormal stress test in 08/2010 with probable underlying ischemic heart disease. 9. Loni-qh-pmtfumwx mitral regurgitation. Ejection fraction 50% to 55% with kvlo-vj-zhffenpk pulmonary hypertension in 08/2010. 10. Paroxysmal supraventricular tachycardia. 11. Possible history of atrial fibrillation, currently in sinus rhythm. 12. Hypothyroidism. 13. History of deep vein thrombosis and/or pulmonary embolism with inferior vena cava filter. PLAN 1. The patient presented to the hospital with complaints of shortness of breath and worsening edema. She was started on diuretics and admitted for further observation. Cardiology was consulted. 2. There is evidence of volume overload and the patient appears to have underlying congestive heart failure. 2D echocardiogram has been ordered to assess LV function and valves. 3. V/Q scan was indeterminate. Venous Dopplers of the lower extremities are pending. We will start therapeutic Lovenox in case there is a PE/DVT. 4. The patient's blood pressure is borderline low. Her diltiazem has been decreased with parameters. Her amiodarone was ordered b.i.d. per home dosing and it has been decreased to a daily dose. 5. The patient may have underlying ischemic heart disease. Stress test revealed medium area of ischemia in the anterolateral wall and apex in 2010. She should be considered for ischemic workup. This has been discussed with her and her family and decision is pending. 6. She will be placed on aspirin for the time being. Fasting lipid profile will be ordered. 7. We will continue diuretics as dosed and placed on strict intake and output, and fluid restriction. 8. The patient ambulates with a walker and physical therapy will be consulted. Unit #: [id number] #: [id number] Patient: TERESA WATT Dictated by... Frances Cardoza APRN for Rohan Moore/kwesi TD: 07/04/2016 06:16 JOB #: [id number] CONSULTATION REPORT Page 1 of 1 X X CONSULTATION REPORT
--- NOTE | ~2016-06-29 | CO ---
Unit #: [id number] #: [id number] Patient: TERESA WATT [id number] [address] [place], [place] [address] [id number] I MR#: [id number] NAME: TERESA WATT. ROOM: 334 Age: 81 Sex: F Admission Date: 06/30/2016 : 1935 Attending Physician: Ankita Alberts M.D. Primary Care Physician: Rush Squires M.D. Consultation Date: 07/02/2016 CONSULTATION REPORT REASON FOR CONSULT Possible metastatic disease to the liver, please evaluate. 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 She underwent Whipple procedure followed by multiple scan whereby she was told that there is no evidence of recurrence. Now presents with elevated LFTs, DVT, and multiple liver metastases. On questioning today, she states that other than aches and pains currently she is not having a lot of discomfort. She is comfortable. PAST MEDICAL HISTORY 1. Hypertension. 2. Coronary artery disease. 3. Sarcoid. 4. COPD. 5. Hypothyroidism. 6. Pulmonary embolism. 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 FAMILY HISTORY Negative for multiple cancers. SOCIAL HISTORY She has children, lives with the children. Nonsmoker. No alcohol usage. ALLERGIES No known allergies. CHRONIC MEDICATIONS 1. Spiriva. 2. Phenergan. 3. Calcium. 4. Multivitamins. 5. Hydrocodone. 6. Levothyroxine. 7. Diltiazem. 8. Cordarone. 9. Periodic Lasix. REVIEW OF SYSTEMS Mainly remarkable for some discomfort in the left, mild degrees of shortness of breath on exertion. Otherwise, 8 or 10 systems were within Unit #: [id number] #: [id number] Patient: TERESA WATT normal limits. PHYSICAL EXAMINATION GENERAL: On exam, she is awake, alert, oriented x3. Appears comfortable in bed, laying flat. No palpable nodes. LUNGS: Crackles. No rales. CARDIOVASCULAR: Distant S1, S2. ABDOMEN: Liver is about 13 cm midclavicular line just palpable below the costal margin. No ascites. PELVIC: Not performed. BREAST: Not performed. CENTRAL NERVOUS SYSTEM: Grossly intact. EXTREMITIES: Lower extremities: There is 1+ edema. Pulses are 2+. Left side is more swollen than the right. DIAGNOSTIC STUDIES LABORATORY: CBC: Hemoglobin 11.6, hematocrit 35.8, white count 9200, platelets 217,000. Sodium 140, potassium 4.2, chloride 106, CO2 of 26, glucose 73, BUN 20, creatinine 1.3. 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 Now presents with extensive liver metastases unlikely to be the ampulla of Vater after six years but cannot completely rule out that possibility. At this point, I discussed with the patient the need for a biopsy procedure. Benefits and risks were explained. She is in full agreement. Will hold the Lovenox. Proceed with a CT-guided biopsy of the liver lesion and check a CEA and CA19-9 level in the morning. Dictated by... Omar Lockhart M.D. YAMIL/jose alejandro TD: 07/02/2016 17:31 JOB #: [id number] CONSULTATION REPORT Page 1 of 1 X Omar Lockhart MD X CONSULTATION REPORT
--- NOTE | ~2016-06-29 | US84 ---
[id number] [facility]. [facility] [address] [place], [place] [address] [id number] I MR#: [id number] Acc #: [id number] NAME: TERESA WATT : 1935 SEX: F STUDY DATE/TIME: 06/30/2016 15:09 UNIT: C3A PCU ROOM: [facility] STUDY DESCRIPTION: US LE Veins Complete Neftali Stdy Attending Physician: Ankita Alberts M.D. Ordering Physician: Ankita Alberts M.D. Primary Care Physician: Rush Squires M.D. MEDICAL IMAGING REPORT This report is preliminary unless electronic signature is present EXAM Color Doppler ultrasound examination of the lower extremities HISTORY Leg swelling bilaterally TECHNIQUE Ultrasound evaluation was performed with buchanan-scale, color-flow and Doppler spectral waveform analysis. FINDINGS On the right side all deep veins are widely patent with good compressibility and good augmentation to flow with distal compression. On the left side there is thrombosis seen extending from the superficial femoral vein in the thigh down across the knee and into the peroneal veins and posterior tibial veins. IMPRESSION The examination is positive for DVT on the left from the superficial femoral veins of the thigh down into the posterior tibial and peroneal veins of the calf. The right side is normal. Dictated by... Dagoberto Williamson M.D. THIS IS AN ELECTRONICALLY VERIFIED REPORT Dagoberto Williamson M.D. at 07/02/2016 11:00 AM Pete TD: 07/01/2016 10:32 JOB #: [id number] MEDICAL IMAGING REPORT Page 1 of 1 COPY
--- NOTE | ~2016-06-29 | EKG ---
PATIENT: TERESA WATT UNIT #: [id number] Ventricular Rate: 69 BPM Atrial Rate: 69 BPM P-R Interval: 230 ms QRS Duration: 84 ms Q-T Interval: 422 ms QTC Calculation(Bezet): 452 ms P [place]: 30 degrees Calculated R [place]: 83 degrees Calculated T [place]: 88 degrees Diagnosis Line: Sinus rhythm with 1st degree A-V block Diagnosis Line: Otherwise normal ECG Diagnosis Line: When compared with ECG of 08-MAY-2011 06:01, Diagnosis Line: MI interval has increased Diagnosis Line: T wave inversion no longer evident in Anterior Diagnosis Line: leads Diagnosis Line: Confirmed by STIVEN THOMAS MD ([id number]) on Diagnosis Line: 06/30/2016 8:01:20 PM INTERPRETING MD: RAMIN
--- NOTE | ~2016-06-29 | XA60 ---
[facility] A Service of [facility] & [facility] RADIOLOGY TEXT RESULTS PATIENT: TERESA WATT LOCATION: [place] [id number] : [birth year] UNIT #: [id number] AGE: [address]: Ankita Alberts MD SEX: F ORDER DR: [id number] [facility] [address] [place], [place] [address] [id number] I MR#: [id number] Acc #: [id number] NAME: TERESA WATT. : 1935 SEX: F STUDY DATE/TIME: 07/03/2016 13:23 UNIT: [facility] ROOM: [facility] STUDY DESCRIPTION: XA BX Perc Liver Attending Physician: Ankita Alberts M.D. Ordering Physician: Omar Lockhart M.D. Primary Care Physician: Rush Squires M.D. MEDICAL IMAGING REPORT This report is preliminary unless electronic signature is present EXAM CT-guided liver biopsy. INDICATION Ms. Watt is a 81-year-old lady who has a history of pancreatic cancer status post Whipple procedure. She was noted to have an infiltrating mass involving the hilum of the liver with multiple new low attenuation lesions favored to represent metastases. She has been referred for a biopsy. FINDINGS Result text under order number [id number]. Please see this order for result text. Dictated by... Gris To M.D. THIS IS AN ELECTRONICALLY VERIFIED REPORT Gris To M.D. at 07/04/2016 4:37 PM AFF/tmw TD: 07/04/2016 09:37 JOB #: [id number] MEDICAL IMAGING REPORT Page 1 of 1 COPY
[2016-06-29 22:10] LABS: ARTERIAL BLD GAS O2 SATURATION 94.2 % (90.0-100.0); ARTERIAL BLOOD GAS CARBOXY HB 0.6 %sat (0.0-9.0); ARTERIAL BLOOD GAS MET HB 0.8 %sat (0.0-2.0); ARTERIAL BLOOD GAS PCO2 28.7 mmHg (35.0-45.0); ARTERIAL BLOOD GAS pH 7.473 (7.350-7.450)
[2016-06-29 22:11] LABS: ARTERIAL BLOOD GAS ALLEN TEST NORMAL; ARTERIAL BLOOD GAS ART SITE LEFT RADIAL; ARTERIAL BLOOD GAS PO2 75.2 mmHg (80.0-100); ARTERIAL DRAW? YES
[~2016-06-29 22:18] MED LIST: ADVAIR; ALBUTEROL17 GM INH; LOPRESSOR PO; SPIRIVA18 MCG; SPIRIVA18 MCG INH
[2016-06-29 22:24] LABS: BASOPHIL# 0.1 X10e3 (0-0.3); BASOPHIL% 0.5 % (0-2.5); DIFF IND NO; EOSINOPHIL% 0.2 % (0.0-7.0); HEMATOCRIT 41.4 % (35.0-45.0); HEMOGLOBIN 13.4 gm/dL (12.0-16.0); LYMPHOCYTE# 0.6 X10e3 (1.0-3.5); LYMPHOCYTE% 4.7 % (17.0-45.0); MEAN CELL VOLUME 94.3 FL (83-96); MEAN CORPUSCULAR HEMOGLOBIN 30.6 PG (28-34); MEAN CORPUSCULAR HGB CONC 32.4 g/dL (30-36); MEAN PLATELET VOLUME 9.2 FL (6.5-11.5); MONOCYTE% 8.1 % (3.0-12.0); NEUTROPHIL# 10.7 X10e3 (1.5-7.1); NEUTROPHIL% 86.5 % (40-75); PLATELET COUNT 222 X10e3 (140-420); RED BLOOD COUNT 4.39 X10e (3.90-5.30); RED CELL DISTRIBUTION WIDTH 15.3 % (11.0-15.5); WHITE BLOOD COUNT 12.4 X10e3 (4.0-10.5)
[2016-06-29 22:30] LABS: POC - TROPONIN <0.05 ng/mL (<=0.05)
[2016-06-29] MEDS ORDERED: SPIRIVA RESPIMAT4 G1 INH (22:31)
[2016-06-29] MEDS ORDERED: PHENERGAN25 M1 PO (22:31)
[2016-06-29] MEDS ORDERED: K-DUR20 ME1 PO (22:32)
[2016-06-29] MEDS ORDERED: CALCIUM 5001 TAB PO (22:33)
[2016-06-29] MEDS ORDERED: MULTI-DAY1 TAB PO (22:34)
[2016-06-29] MEDS ORDERED: STOOL SOFTENER1 EAC1 PO (22:34)
[2016-06-29] MEDS ORDERED: HYDROCODONE-APA1 T56 PO (22:35)
[2016-06-29] MEDS ORDERED: LASIX20 MG PO (22:35)
[2016-06-29] MEDS ORDERED: AMIODARONE (22:35)
[2016-06-29] MEDS ORDERED: DILTIAZEM ER60 MG PO (22:36)
[2016-06-29] MEDS ORDERED: LEVOTHYROXINE75 MCG PO (22:36)
[2016-06-29 22:37] LABS: INR 1.1; PROTHROMBIN TIME (PATIENT) 11.5 SECONDS (9.6-11.5)
[2016-06-29 22:43] LABS: ALBUMIN SERUM 3.1 g/dL (3.5-5.0); BILIRUBIN, DIRECT 0.6 mg/dL (0.0-0.2); BILIRUBIN,INDIRECT 0.8 mg/dL (0.0-0.9); BILIRUBIN,TOTAL 1.4 mg/dL (0.2-2.0); BUN/CREATININE RATIO 13.33; CALCIUM SERUM 7.9 mg/dL (8.4-10.2); CREATININE SERUM 1.5 mg/dL (0.6-1.4); GLOM FILT RATE Estimated 35.5 mL/min (>60); POTASSIUM 4.1 mmol/L (3.5-5.1); PROTEIN TOTAL SERUM 6.2 g/dL (6.0-8.3)
[2016-06-29 23:59] LABS: POC - CKMB 1.1 ng/mL (0.0-7.9); POC - TROPONIN <0.05 ng/mL (<=0.05)
[2016-06-30 07:54] LABS: BUN/CREATININE RATIO 13.57; CALCIUM SERUM 7.6 mg/dL (8.4-10.2); CREATININE SERUM 1.4 mg/dL (0.6-1.4); GLOM FILT RATE Estimated 38.5 mL/min (>60); MAGNESIUM 2.2 mg/dL (1.6-3.0)
[2016-06-30 14:02] LABS: HEMATOCRIT 37.8 % (35.0-45.0); HEMOGLOBIN 12.6 gm/dL (12.0-16.0); MEAN CELL VOLUME 94.1 FL (83-96); MEAN CORPUSCULAR HEMOGLOBIN 31.5 PG (28-34); MEAN CORPUSCULAR HGB CONC 33.5 g/dL (30-36); MEAN PLATELET VOLUME 9.4 FL (6.5-11.5); RED BLOOD COUNT 4.01 X10e (3.90-5.30); WHITE BLOOD COUNT 7.8 X10e3 (4.0-10.5)
[2016-06-30 14:33] LABS: BUN/CREATININE RATIO 14.61; CALCIUM SERUM 7.7 mg/dL (8.4-10.2); CREATININE SERUM 1.3 mg/dL (0.6-1.4); GLOM FILT RATE Estimated 41.9 mL/min (>60); MAGNESIUM 2.2 mg/dL (1.6-3.0); POTASSIUM 3.9 mmol/L (3.5-5.1)
[2016-06-30 14:40] LABS: THYROID STIMULATING HORMONE 9.43 uIU/ml (0.34-5.60)
[2016-06-30 14:47] LABS: FREE THYROXIN (T4) 0.91 ng/dL (0.58-1.64)
[2016-07-01 13:54] LABS: HEMOGLOBIN 13.5 gm/dL (12.0-16.0); MEAN CELL VOLUME 94.1 FL (83-96); MEAN CORPUSCULAR HGB CONC 32.9 g/dL (30-36); MEAN PLATELET VOLUME 9.2 FL (6.5-11.5); RED BLOOD COUNT 4.36 X10e (3.90-5.30); RED CELL DISTRIBUTION WIDTH 15.3 % (11.0-15.5); WHITE BLOOD COUNT 8.7 X10e3 (4.0-10.5)
[2016-07-01 14:30] LABS: CALCIUM SERUM 8.4 mg/dL (8.4-10.2); CREATININE SERUM 1.4 mg/dL (0.6-1.4); GLOM FILT RATE Estimated 38.5 mL/min (>60); POTASSIUM 3.9 mmol/L (3.5-5.1)
[2016-07-01 14:54] LABS: %MB 2.6 % (0.0-4.0); MB 2.4 ng/ml
[2016-07-02 05:20] LABS: HEMATOCRIT 35.8 % (35.0-45.0); HEMOGLOBIN 11.6 gm/dL (12.0-16.0); MEAN CELL VOLUME 94.8 FL (83-96); MEAN CORPUSCULAR HEMOGLOBIN 30.8 PG (28-34); MEAN CORPUSCULAR HGB CONC 32.5 g/dL (30-36); MEAN PLATELET VOLUME 9.4 FL (6.5-11.5); RED BLOOD COUNT 3.77 X10e (3.90-5.30); RED CELL DISTRIBUTION WIDTH 15.1 % (11.0-15.5); WHITE BLOOD COUNT 9.2 X10e3 (4.0-10.5)
[2016-07-02 06:05] LABS: BUN/CREATININE RATIO 15.38; CALCIUM SERUM 8.1 mg/dL (8.4-10.2); CREATININE SERUM 1.3 mg/dL (0.6-1.4); GLOM FILT RATE Estimated 41.9 mL/min (>60); MAGNESIUM 2.1 mg/dL (1.6-3.0); POTASSIUM 4.3 mmol/L (3.5-5.1)
[2016-07-03 10:16] LABS: HEMATOCRIT 36.5 % (35.0-45.0); MEAN CELL VOLUME 94.2 FL (83-96); MEAN CORPUSCULAR HEMOGLOBIN 31.1 PG (28-34); MEAN PLATELET VOLUME 9.4 FL (6.5-11.5); RED BLOOD COUNT 3.87 X10e (3.90-5.30); RED CELL DISTRIBUTION WIDTH 15.2 % (11.0-15.5); WHITE BLOOD COUNT 8.2 X10e3 (4.0-10.5)
[2016-07-03 10:35] LABS: PARTIAL THROMBOPLASTIN TIME 32.2 SECONDS (23.5-31.3); PROTHROMBIN TIME (PATIENT) 10.9 SECONDS (9.6-11.5)
[2016-07-03 10:55] LABS: ALBUMIN SERUM 2.7 g/dL (3.5-5.0); BILIRUBIN, DIRECT 0.6 mg/dL (0.0-0.2); BILIRUBIN,INDIRECT 0.9 mg/dL (0.0-0.9); BILIRUBIN,TOTAL 1.5 mg/dL (0.2-2.0); BUN/CREATININE RATIO 17.5; CALCIUM SERUM 8.2 mg/dL (8.4-10.2); CREATININE SERUM 1.2 mg/dL (0.6-1.4); GLOM FILT RATE Estimated 45.9 mL/min (>60); POTASSIUM 3.9 mmol/L (3.5-5.1); PROTEIN TOTAL SERUM 5.4 g/dL (6.0-8.3)
[2016-07-03 20:02] LABS: URINE SOURCE CLEAN CATCH
[2016-07-03 20:31] LABS: CULTURE INDICATED? YES; URINE APPEARANCE CLOUDY; URINE BACTERIA AUWI 4+ (NEGATIVE); URINE BLOOD NEG (NEG); URINE COLOR DK YELLOW; URINE GLUCOSE NEG (NEG); URINE KETONE NEG (NEG); URINE NITRATE NEG (NEG); URINE PH 5.5 (5-8); URINE PROTEIN TRACE (NEG); URINE SPECIFIC GRAVITY 1.019 (1.003-1.035); URINE SQUAMOUS EPITHELIAL CELL FEW /[HPF]; UWBCS1 AUWI 25-50 (0-5)
[2016-07-03 20:32] LABS: URINE LEUKOCYTE ESTERASE 2+ (NEG)
[2016-07-03 20:34] LABS: U HYALINE CASTS AUWI 0-2 /[LPF]; URINE BILIRUBIN NEG (NEG)
[2016-07-04 07:56] LABS: BASOPHIL# 0.1 X10e3 (0-0.3); BASOPHIL% 0.2 % (0-2.5); HEMATOCRIT 38.3 % (35.0-45.0); HEMOGLOBIN 12.1 gm/dL (12.0-16.0); LYMPHOCYTE# 0.3 X10e3 (1.0-3.5); LYMPHOCYTE% 0.9 % (17.0-45.0); MEAN CELL VOLUME 95.6 FL (83-96); MEAN CORPUSCULAR HEMOGLOBIN 30.3 PG (28-34); MEAN CORPUSCULAR HGB CONC 31.7 g/dL (30-36); MEAN PLATELET VOLUME 10.2 FL (6.5-11.5); MONOCYTE# 1.2 X10e3 (0-1.0); MONOCYTE% 3.3 % (3.0-12.0); NEUTROPHIL# 33.4 X10e3 (1.5-7.1); NEUTROPHIL% 95.6 % (40-75); PLATELET COUNT 243 X10e3 (140-420); RED BLOOD COUNT 4.01 X10e (3.90-5.30); RED CELL DISTRIBUTION WIDTH 15.2 % (11.0-15.5)
[2016-07-04 07:59] LABS: DIFF IND YES
[2016-07-04 08:26] LABS: ANISOCYTOSIS SL; PLATELET ESTIMATE NORMAL (NORMAL)
[2016-07-04 08:48] LABS: ALBUMIN SERUM 2.6 g/dL (3.5-5.0); BUN/CREATININE RATIO 16.47; CALCIUM SERUM 8.4 mg/dL (8.4-10.2); CREATININE SERUM 1.7 mg/dL (0.6-1.4); GLOM FILT RATE Estimated 30.7 mL/min (>60); POTASSIUM 4.7 mmol/L (3.5-5.1); PROTEIN TOTAL SERUM 5.4 g/dL (6.0-8.3)
[2016-07-04 08:49] LABS: BILIRUBIN,TOTAL 5.5 mg/dL (0.2-2.0)
[2016-07-04 10:07] LABS: BASOPHIL# 0.2 X10e3 (0-0.3); BASOPHIL% 0.7 % (0-2.5); EOSINOPHIL# 0.1 X10e3 (0-0.7); EOSINOPHIL% 0.3 % (0.0-7.0); HEMATOCRIT 38.8 % (35.0-45.0); HEMOGLOBIN 12.6 gm/dL (12.0-16.0); LYMPHOCYTE# 0.4 X10e3 (1.0-3.5); LYMPHOCYTE% 1.1 % (17.0-45.0); MEAN CORPUSCULAR HEMOGLOBIN 30.5 PG (28-34); MEAN CORPUSCULAR HGB CONC 32.4 g/dL (30-36); MEAN PLATELET VOLUME 9.7 FL (6.5-11.5); MONOCYTE# 0.7 X10e3 (0-1.0); MONOCYTE% 2.2 % (3.0-12.0); NEUTROPHIL# 31.2 X10e3 (1.5-7.1); NEUTROPHIL% 95.7 % (40-75); PLATELET COUNT 235 X10e3 (140-420); RED BLOOD COUNT 4.13 X10e (3.90-5.30); RED CELL DISTRIBUTION WIDTH 15.4 % (11.0-15.5); WHITE BLOOD COUNT 32.6 X10e3 (4.0-10.5)
[2016-07-04 10:09] LABS: DIFF IND NO
[2016-07-04 17:49] LABS: CREATININE,RANDOM URINE 116 mg/dL; SODIUM URINE RANDOM 25 mmol/L
[2016-07-05 06:19] LABS: BUN/CREATININE RATIO 14.58; CREATININE SERUM 2.4 mg/dL (0.6-1.4); GLOM FILT RATE Estimated 18.5 mL/min (>60); POTASSIUM 5.4 mmol/L (3.5-5.1)
[2016-07-05 07:16] LABS: BASOPHIL# 0.1 X10e3 (0-0.3); BASOPHIL% 0.3 % (0-2.5); EOSINOPHIL# 1.8 X10e3 (0-0.7); EOSINOPHIL% 6.9 % (0.0-7.0); HEMOGLOBIN 11.8 gm/dL (12.0-16.0); LYMPHOCYTE# 0.4 X10e3 (1.0-3.5); LYMPHOCYTE% 1.6 % (17.0-45.0); MEAN CELL VOLUME 95.3 FL (83-96); MEAN CORPUSCULAR HEMOGLOBIN 30.4 PG (28-34); MEAN CORPUSCULAR HGB CONC 31.9 g/dL (30-36); MEAN PLATELET VOLUME 10.9 FL (6.5-11.5); MONOCYTE# 2.3 X10e3 (0-1.0); NEUTROPHIL# 21.2 X10e3 (1.5-7.1); NEUTROPHIL% 82.2 % (40-75); RED BLOOD COUNT 3.88 X10e (3.90-5.30); RED CELL DISTRIBUTION WIDTH 15.7 % (11.0-15.5); WHITE BLOOD COUNT 25.8 X10e3 (4.0-10.5)
[2016-07-05 07:17] LABS: PLATELET COUNT 108 X10e3 (140-420)
[2016-07-05 07:18] LABS: DIFF IND NO
[2016-07-06 05:58] LABS: BASOPHIL# 0.1 X10e3 (0-0.3); BASOPHIL% 0.4 % (0-2.5); EOSINOPHIL# 0.2 X10e3 (0-0.7); EOSINOPHIL% 1.3 % (0.0-7.0); HEMATOCRIT 34.5 % (35.0-45.0); HEMOGLOBIN 11.3 gm/dL (12.0-16.0); LYMPHOCYTE# 0.4 X10e3 (1.0-3.5); LYMPHOCYTE% 2.3 % (17.0-45.0); MEAN CELL VOLUME 93.3 FL (83-96); MEAN CORPUSCULAR HEMOGLOBIN 30.6 PG (28-34); MEAN CORPUSCULAR HGB CONC 32.8 g/dL (30-36); MEAN PLATELET VOLUME 11.4 FL (6.5-11.5); MONOCYTE# 1.6 X10e3 (0-1.0); MONOCYTE% 9.8 % (3.0-12.0); NEUTROPHIL# 14.5 X10e3 (1.5-7.1); NEUTROPHIL% 86.2 % (40-75); RED CELL DISTRIBUTION WIDTH 15.5 % (11.0-15.5); WHITE BLOOD COUNT 16.8 X10e3 (4.0-10.5)
[2016-07-06 06:44] LABS: BUN/CREATININE RATIO 16.78; CALCIUM SERUM 7.9 mg/dL (8.4-10.2); CREATININE SERUM 2.8 mg/dL (0.6-1.4); GLOM FILT RATE Estimated 15.3 mL/min (>60); POTASSIUM 5.2 mmol/L (3.5-5.1)
[2016-07-06 06:50] LABS: PLATELET COUNT 68 X10e3 (140-420)
[2016-07-06 06:55] LABS: DIFF IND YES
[2016-07-06 07:05] LABS: ANISOCYTOSIS SL; PLATELET ESTIMATE DECREASED (NORMAL)
[2016-07-07 03:47] LABS: BUN/CREATININE RATIO 18.57; CALCIUM SERUM 7.4 mg/dL (8.4-10.2); CREATININE SERUM 2.8 mg/dL (0.6-1.4); GLOM FILT RATE Estimated 15.3 mL/min (>60); POTASSIUM 4.9 mmol/L (3.5-5.1)
[2016-07-08 04:32] LABS: EOSINOPHIL% 0.2 % (0.0-7.0); HEMATOCRIT 35.8 % (35.0-45.0); HEMOGLOBIN 11.8 gm/dL (12.0-16.0); LYMPHOCYTE# 0.4 X10e3 (1.0-3.5); LYMPHOCYTE% 2.2 % (17.0-45.0); MEAN CELL VOLUME 92.6 FL (83-96); MEAN CORPUSCULAR HEMOGLOBIN 30.6 PG (28-34); MEAN CORPUSCULAR HGB CONC 33.1 g/dL (30-36); MEAN PLATELET VOLUME 10.9 FL (6.5-11.5); MONOCYTE# 0.9 X10e3 (0-1.0); MONOCYTE% 5.7 % (3.0-12.0); NEUTROPHIL# 15.1 X10e3 (1.5-7.1); NEUTROPHIL% 91.9 % (40-75); RED BLOOD COUNT 3.86 X10e (3.90-5.30); RED CELL DISTRIBUTION WIDTH 14.9 % (11.0-15.5); WHITE BLOOD COUNT 16.4 X10e3 (4.0-10.5)
[2016-07-08 04:35] LABS: DIFF IND NO; PLATELET COUNT 53 X10e3 (140-420)
[2016-07-08 04:47] LABS: ALBUMIN SERUM 2.2 g/dL (3.5-5.0); BILIRUBIN,TOTAL 2.3 mg/dL (0.2-2.0); BUN/CREATININE RATIO 21.2; CALCIUM SERUM 7.4 mg/dL (8.4-10.2); CREATININE SERUM 2.5 mg/dL (0.6-1.4); GLOM FILT RATE Estimated 17.6 mL/min (>60); POTASSIUM 4.4 mmol/L (3.5-5.1); PROTEIN TOTAL SERUM 5.3 g/dL (6.0-8.3)
== END 2016-07-09 05:27 | disposition expired | DRG 291 ==
LOC: CED 22:18 → CEDOF 06-30 03:00 → C3A PCU 06-30 07:51 → CICCU2 07-04 01:08
PROVIDERS: Emergency Medicine; Internal Medicine; Internal Medicine Cardiovascular Disease; Internal Medicine Nephrology; Nurse Practitioner; Nurse Practitioner Family; Physician Assistant Medical
PROC: 0FB03ZX Excision of Liver, Percutaneous Approach, Diagnostic (ICD-10-PCS; principal; 2016-07-03)
PROC: 02HV33Z Insertion of Infusion Device into Superior Vena Cava, Percutaneous Approach (ICD-10-PCS; 2016-07-05)
PROC: B518YZA Fluoroscopy of Superior Vena Cava using Other Contrast, Guidance (ICD-10-PCS; 2016-07-05)
PROC: B548ZZA Ultrasonography of Superior Vena Cava, Guidance (ICD-10-PCS; 2016-07-05)
DX: I13.0 Hypertensive heart and chronic kidney disease with heart failure and stage 1 through stage 4 chronic kidney disease, or unspecified chronic kidney disease (principal); I50.41 Acute combined systolic (congestive) and diastolic (congestive) heart failure; N17.0 Acute kidney failure with tubular necrosis; A41.50 Gram-negative sepsis, unspecified; I82.402 Acute embolism and thrombosis of unspecified deep veins of left lower extremity; E87.1 Hypo-osmolality and hyponatremia; I47.1 Supraventricular tachycardia; I27.2 Other secondary pulmonary hypertension; J44.9 Chronic obstructive pulmonary disease, unspecified; D86.0 Sarcoidosis of lung; N18.3 Chronic kidney disease, stage 3 (moderate); I25.10 Atherosclerotic heart disease of native coronary artery without angina pectoris; Z86.711 Personal history of pulmonary embolism; E03.9 Hypothyroidism, unspecified; Z85.07 Personal history of malignant neoplasm of pancreas; I44.0 Atrioventricular block, first degree; R94.5 Abnormal results of liver function studies; I34.0 Nonrheumatic mitral (valve) insufficiency; I49.3 Ventricular premature depolarization; Z86.718 Personal history of other venous thrombosis and embolism; I48.91 Unspecified atrial fibrillation; Z87.891 Personal history of nicotine dependence; Z51.5 Encounter for palliative care
CPT/HCPCS: 36415; 36600; 71010; 74176; 76705; 76937; 77001; 77012; 78582; 80048; 80053; 80061; 80076; 81003; 82378; 82550; 82553; 82570; 82803; 82947; 83735; 83880; 84100; 84300; 84439; 84443; 84484; 85025; 85027; 85610; 85730; 86301; 87040; 87076; 87086; 88307; 93005; 93306; 93970; 93979; 94640; 94664; 94760; 94761; 97116; 97162; 97166; 97530; 97535; 99285; A9540; A9567; C1751; G8978-GP; G8979-GP; G8987-GO; G8988-GO; J0696; J1250; J1265; J1642; J1650; J1940; J1956; J2060; J2250; J2270; J3010